=== PATIENT | male | born 1950 | race Two or more races ===

== ENCOUNTER 2021-08-17 12:56 | Emergency (ER) | payer MEDICARE ==
[2021-08-17 13:12] VITALS: BP 157/96; PULSE 57; RESP 16; TEMP 97.8
[2021-08-17] MEDS ORDERED: MORPHINE SULFATE 4 MG/ML SYRINGE IM STA (13:58)
[2021-08-17] MEDS ORDERED: KETOROLAC 15 MG/ML 1 ML VIAL IM STA (14:19)
--- NOTE | 2021-08-17 14:19 | ED ---
General Adult HPI - General Chief complaint: Recheck/Abnormal Lab/Rx Stated complaint: Rt Knee Pain Time Seen by Provider: 08/17/21 13:43 Source: patient Mode of arrival: ambulatory Limitations: no limitations - History of Present Illness Initial comments: Patient is a 71-year-old male who presents to the emergency department with a chief complaint of right knee pain. Patient reports he fell on his knee at the gas station onto cement in April. Patient reports pain over the medial aspect of his knee. He states that the pain got better in May but has progressively worsened since, with worsening of pain with knee flexion. Patient has been taking Tylenol with refractory pain. Patient denies knee instability. Patient got an x-ray at his primary care provider's office last week which he reports is negative. Patient is seeking referral to allergy and immunology specialist with concern of intermittent tests injury. - Related Data Home Medications Medication Instructions Recorded Confirmed Aspirin EC [Ecotrin Low Dose] 81 mg PO DAILY 08/17/21 08/17/21 Metoprolol Tartrate [Lopressor] 100 mg PO BID 08/17/21 08/17/21 Semaglutide [Ozempic] 0.25 mg SQ FR 08/17/21 08/17/21 cloNIDine HCL 0.1 mg PO DAILY 08/17/21 08/17/21 metFORMIN HCL [Glucophage XR] 750 mg PO DAILY 08/17/21 08/17/21 Previous Rx's Medication Instructions Recorded Docusate [Colace] 100 mg PO DAILY 4 Days #4 capsule 08/17/21 HYDROcodone/APAP 10-325MG [Lovejoy 1 tab PO Q6H PRN 3 Days #12 tab 08/17/21 10-325] Allergies Allergy/AdvReac Type Severity Reaction Status Date / Time No Known Allergies Allergy Verified 08/17/21 13:13 Review of Systems ROS Statement: Those systems with pertinent positive or pertinent negative responses have been documented in the HPI. ROS Other: All systems not noted in ROS Statement are negative. Past Medical History Past Medical History: Diabetes Mellitus, Hypertension History of Any Multi-Drug Resistant Organisms: None Reported Past Surgical History: No Surgical Hx Reported Past Psychological History: No Psychological Hx Reported Smoking Status: Never smoker Past Alcohol Use History: None Reported Past Drug Use History: None Reported General Exam Limitations: no limitations General appearance: alert, in no apparent distress Head exam: Present: atraumatic, normocephalic, normal inspection Eye exam: Present: normal appearance, PERRL, EOMI. Absent: scleral icterus, conjunctival injection, periorbital swelling Respiratory exam: Present: normal lung sounds bilaterally. Absent: respiratory distress, wheezes, rales, rhonchi, stridor Cardiovascular Exam: Present: regular rate, normal rhythm. Absent: normal heart sounds (Patient has known murmur who he reports he follows cardiology for) Extremities exam: Present: other (right knee: no erythema, swelling, or warmth of the right knee. No deformity. No laxity. Full range of motion. ) Neurological exam: Present: alert, oriented X3, CN II-XII intact Psychiatric exam: Present: normal affect, normal mood Skin exam: Present: warm, dry, intact, normal color. Absent: rash Course Vital Signs 08/17/21 13:08 Temperature 97.8 F Pulse Rate 57 L Respiratory 16 Rate Blood Pressure 157/96 O2 Sat by Pulse 98 Oximetry Medical Decision Making - Medical Decision Making Patient is a 71-year-old male with consistent right knee pain after fall on right knee in April. Thorough history and examination were performed. 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 Patient given Toradol for pain. Patient will be discharged with a short course of Lovejoy for severe pain. I also prescribed Colace for possible constipation with Lovejoy. Patient declines a knee immobilizer at this time as he does not feel the instability with walking. He is instructed to follow-up with allergy and immunology specialist in 1-2 days. Return parameters discussed. Patient verbalize understanding and are agreeable to plan. Dr. Dior is my attending. Disposition Clinical Impression: Right knee pain Disposition: HOME SELF-CARE Condition: Good Instructions (If sedation given, give patient instructions): Knee Pain (ED) Additional Instructions: Take Lovejoy and Colace as prescribed. Referred to allergy and immunology specialist to schedule an appointment at earliest availability. Return to the emergency department if you experience new, concerning, or worsening symptoms. Prescriptions: Docusate [Colace] 100 mg PO DAILY 4 Days #4 capsule HYDROcodone/APAP 10-325MG [Lovejoy 10-325] 1 tab PO Q6H PRN 3 Days #12 tab PRN Reason: Severe Pain Is patient prescribed a controlled substance at d/c from ED?: Yes When asked, does pt state using other controlled substances?: No If prescribed controlled substance>3 days was MAPS reviewed?: Prescribed <3 Days If opioid is for acute pain is fill amount 7 days or less?: Yes If Rx opioid, was Start Talking consent form obtained?: Yes Referrals: Nonstaff,Physician [Primary Care Provider] - 1-2 days Burton Luque, PAC [PHYSICIAN BUSINESS REPORTING DEVELOPER] - 1-2 days Time of Disposition: 14:19
== END 2021-08-17 14:45 | disposition home or self-care (01) ==
LOC: EC 12:56
DX: M25.561 Pain in right knee (principal); I10 Essential (primary) hypertension; E11.9 Type 2 diabetes mellitus without complications
CPT/HCPCS: 99283; 96372; J1885

== ENCOUNTER → 2021-09-13 | Outpatient (CLI) | payer MEDICARE ==
--- NOTE | 2021-09-13 12:36 | MR ---
EXAMINATION TYPE: MR knee RT wo con DATE OF EXAM: 09/13/2021 COMPARISON: Outside right knee x-ray August 24, 2021 HISTORY: M25.561 R knee pain, Chronic TECHNIQUE: Multiplanar, multisequence imaging of the right knee is performed without IV contrast. FINDINGS: MEDIAL MENISCUS: Medial extrusion medial meniscus on coronal images. Abnormal signal posterior horn e xtending to central body extends to articular surface. Anterior horn is intact LATERAL MENISCUS: Anterior and posterior horns are intact without tear. CRUCIATE LIGAMENTS: The anterior and posterior cruciate ligaments are intact. Deep to the distal post erior cruciate ligament there is bony projection with internal increased T2 signal and adjacent surro unding fluid and cystic change seen best on coronal image 30 along posterior aspect of the joint spac e suspected big bony excrescence. COLLATERAL LIGAMENTS: The medial collateral ligament and lateral collateral ligament complex are inta ct. Mild fluid signal surrounds the medial collateral ligament. EXTENSOR MECHANISM: Visualized quadriceps and patellar tendons are intact. EFFUSION: No significant suprapatellar joint effusion. POPLITEAL CYST: No popliteal/valiente cyst. TRICOMPARTMENT SPACES: Moderate to severe narrowing with mild to moderate spurring patellofemoral com partment. Mild to moderate narrowing and mild spurring medial tibial femoral compartment. CARTILAGE: Chondromalacia patella with thinning and full-thickness cartilaginous loss along the poste rior patellar pole. Some cartilaginous loss medial tibial femoral compartment. BONE MARROW SIGNAL: Heterogeneous increased T2 signal posterior patellar pole at site of full-thickne ss cartilaginous loss. OTHER: No additional significant abnormality is appreciated. IMPRESSION: 1. Full-thickness tear medial meniscus with the posterior horn and central body. 2. Severe patellofemoral joint arthropathy as detailed above. 3. Bony excrescence along the posterior aspect of the tibial plateau just posterior to the distal PCL suspicious with internal increased T2 signal and surrounding fluid could reflect abnormal bone edema or perhaps friction related changes related to capsular attachment. If patient has localized pain to this level patient may benefit with surgical shaving or removal of this osseous structure. 4. Mild grade 1 MCL sprain injury.
== END | disposition home or self-care (01) ==
LOC: RADMRIMAIN 11:01
PROVIDERS: ATTEND Orthopaedic Surgery
DX: S83.241A Other tear of medial meniscus, current injury, right knee, initial encounter (principal); M12.861 Other specific arthropathies, not elsewhere classified, right knee; X58.XXXA Exposure to other specified factors, initial encounter

== ENCOUNTER 2021-10-13 09:00 | Day surgery (SDC) | payer MEDICARE ==
[2021-10-11 14:16] VITALS: BMI 32.2
--- NOTE | 2021-10-12 12:03 | HP ---
HISTORY AND PHYSICAL CHIEF COMPLAINT: Right knee pain. 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 He notes medial pain that increases with walking and activity. He notes it locks up when he twists. He is having pain at night. He has tried medications in addition to an injection, with only temporary partial relief. He notes that it significantly limits him. PAST MEDICAL HISTORY: Significant for type 2 diabetes and hypertension. PAST SURGICAL HISTORY: Negative. CURRENT MEDICATIONS: Metformin, metoprolol, aspirin and Motrin. ALLERGIES: HE DENIES DRUG ALLERGIES. FAMILY HISTORY: Significant for heart disease. SOCIAL HISTORY: Negative for current tobacco or alcohol use. REVIEW OF SYSTEMS: Sixteen-point review of systems otherwise reviewed and is noncontributory. PHYSICAL EXAMINATION: On examination, the patient is approximately 5 feet 8 inches, 213 pounds of endomorphic habitus. HEENT exam is nonfocal. Neck is supple. He has painless passive motion of the right hip. Straight-leg raise is negative. Active motion of the right knee: Minus 10 to 120 degrees of flexion. He has a mild effusion. He is tender about the medial joint line. Collaterals are stable. Danette is negative. Rosi's elicits medial pain. He does have an antalgic gait pattern. He has genu varum alignment. MRI from 09/13/2021 shows a posterior medial meniscal tear along with patellofemoral degenerative changes. IMPRESSION: 1. Right knee symptomatic medial meniscal tear. 2. Right knee moderate medial and severe patellofemoral compartment osteoarthrosis. RECOMMENDATIONS: I talked to the patient at length regarding his condition along with treatment options. At this point he notes he is quite symptomatic, having pain and mechanical symptoms despite conservative measures. After thorough discussion, he opts to proceed with surgery. We will plan to proceed with arthroscopic evaluation with possible partial medial meniscectomy. Risks and benefits were discussed at length in layman's terms. We will likely perform that as an outpatient procedure. MMODL / IJN: [id number] /
[~2021-10-13 09:00] MED LIST: DEXAMETHASONE SOD PHOSPHATE 4 MG/ML 1 ML VIAL IV ONE; LACTATED RINGERS 1,000 ML IV SCH; MIDAZOLAM 2 MG/2 ML VIAL IV PRN; ONDANSETRON 4 MG/2 ML VIAL IVP ONE
[2021-10-13 09:45] LABS: Glucose,Whole Blood 112 mg/dL (75-99)
[2021-10-13] MEDS ORDERED: SUCCINYLCHOLINE CHLORIDE 100 MG/5 ML SYR IV ONE (10:28)
[2021-10-13] MEDS ORDERED: PROPOFOL 10 MG/ML 20 ML VIAL IV ONE (10:28)
[2021-10-13] MEDS ORDERED: fentaNYL (PF) 50 MCG/ML 2 ML AMP ONE (10:28)
[2021-10-13] MEDS ORDERED: MIDAZOLAM 2 MG/2 ML VIAL ONE (10:28)
[2021-10-13] MEDS ORDERED: ePHEDrine 50 MG/ML 1 ML VIAL ONE (10:28)
[2021-10-13] MEDS ORDERED: LIDOCAINE 2% INJ 20 MG/ML (2 ML VIAL) ONE (10:28)
[2021-10-13] MEDS ORDERED: EPINEPHrine (PF) 1 ML in SODIUM CHLORIDE 0.9% IRRIGATIO 3,000 ML IRRIGATION ONE ×4 (10:40)
--- NOTE | 2021-10-13 11:15 | P.OP ---
Date of Procedure: 10/13/21 Preoperative Diagnosis: Right knee internal derangement Postoperative Diagnosis: Right knee posterior medial meniscal tear Procedure(s) Performed: Right knee arthroscopic partial medial meniscectomy Anesthesia: EBONYA Surgeon: Zane Baptiste Estimated Blood Loss (ml): 10 Pathology: none sent Condition: stable Disposition: PACU Indications for Procedure: The patient's a 71-year-old male who presents progressive right knee pain and mechanical symptoms despite conservative measures. A discussion of the risks and benefits of operative intervention versus continued conservative measures was made with patient. He opted to proceed with surgery. Operative risks to include infection, neurovascular injury, development of blood clots, possible incomplete resolution of symptoms, possible worsening symptoms and need for subsequent procedures was discussed. Informed consent was obtained. Operative Findings: As below Description of Procedure: The patient was brought to the operating room, and after induction of general a nesthesia examined the right knee. Collaterals were stable, Danette was negative, and posterior drawer was negative. The right lower extremity was prepped and draped in a normal fashion. A superior lateral portal was made through a 3 mm skin incision superior and lateral to the patella. This was used for outflow. A lateral portal was made through a 5 mm vertical skin incision lateral to the patella tendon above the joint line. Diagnostic arthroscopy was performed. On inspection of the medial compartment, a complex tear involving the posterior horn of the medial meniscus was noted in the white-red junction. This was debrided back to stable base with straight baskets and a motorized shaver. Diffuse grade 2-3 chondral changes were noted in the medial compartment. There were no loose chondral fragments. On inspection of the notch, the anterior cruciate ligament appeared to be intact. On inspection of the lateral compartment, no significant cartilage or meniscal pathology was no helene. On inspection of the patellofemoral articulation, grade 2-3 chondral changes were noted involving the lateral patella facet. The gutters were clear debris. The knee was then thoroughly irrigated. The portals were closed with Steri-Strips. A sterile dressing was applied in addition to a compression stocking. The patient was awoken from general anesthesia and transferred to recovery room in good condition. Blood loss was estimated at 10 mL. No complications were incurred.
[2021-10-13 11:35] VITALS: RESP 16; TEMP 98.1
[2021-10-13] MEDS: HYDROmorphone 0.5 MG/0.5 ML SYRINGE IVP PRN ×2 (11:44→11:55)
[2021-10-13 13:07] VITALS: BP 124/75; PULSE 54
== END 2021-10-13 13:22 | disposition home or self-care (01) ==
LOC: OR 09:00
PROVIDERS: ATTEND Orthopaedic Surgery
DX: S83.241A Other tear of medial meniscus, current injury, right knee, initial encounter (principal); W19.XXXA Unspecified fall, initial encounter; M17.11 Unilateral primary osteoarthritis, right knee; K21.9 Gastro-esophageal reflux disease without esophagitis; I25.10 Atherosclerotic heart disease of native coronary artery without angina pectoris; E11.9 Type 2 diabetes mellitus without complications; I10 Essential (primary) hypertension; E78.5 Hyperlipidemia, unspecified; Z82.49 Family history of ischemic heart disease and other diseases of the circulatory system; Z79.84 Long term (current) use of oral hypoglycemic drugs; Z79.1 Long term (current) use of non-steroidal anti-inflammatories (NSAID); Z79.82 Long term (current) use of aspirin; Z79.899 Other long term (current) drug therapy; Z95.5 Presence of coronary angioplasty implant and graft
CPT/HCPCS: 29881; J2250; J1100; J0690; J2405; J0171; J3010; J0330; J2704; J1170; J2001